=== PATIENT | female | born 1975 | race American Indian/Alaskan Native ===

== ENCOUNTER 2016-11-08 06:22 | Day surgery (SDC) | payer MEDICARE, MEDICAID ==
[2016-11-08] MEDS ORDERED: Sodium Chloride 0.9% 10 ML Syringe FLUSH PRN (06:42)
[2016-11-08] MEDS ORDERED: Ibuprofen 800 MG Tab PO PRN (06:44)
[2016-11-08] MEDS ORDERED: Ketorolac 30 MG/ML SDV IVPUSH PRN (06:44)
[2016-11-08] MEDS ORDERED: Lactated Ringers 1,000 ML IV SCH (06:45)
[2016-11-08] MEDS ORDERED: Silver Nitrate Applicator Each ONE (07:16)
[2016-11-08] MEDS ORDERED: Ferric Subsulfate Topical Soln 8 GM (8 ML) Bottle ONE (07:16)
[2016-11-08] MEDS ORDERED: Propofol 200 MG/20 ML SDV ONE (07:36)
[2016-11-08] MEDS ORDERED: fentaNYL 100 MCG/2 ML SDV ONE (07:36)
[2016-11-08] MEDS ORDERED: Succinylcholine 200 MG/10 ML MDV ONE (07:36)
[2016-11-08] MEDS ORDERED: Midazolam 1 MG/ML 2 ML SDV ONE (07:36)
[2016-11-08] MEDS ORDERED: Ondansetron 4 MG/2 ML SDV ONE (07:36)
[2016-11-08] MEDS ORDERED: Lidocaine 2% 20 ML MDV ONE (07:37)
[2016-11-08] MEDS ORDERED: ceFAZolin 2 GM in Premix Bag 1 BAG IV ONE (09:16)
[2016-11-08] MEDS ORDERED: Dextrose 5% in Water 1,000 ML IV SCH (09:45)
[2016-11-08 09:58] VITALS: BP 139/120
--- NOTE | 2016-11-08 13:02 | OR ---
DATE: 11/08/2016 PREOPERATIVE DIAGNOSES: 1. Abdominal bleeding. 2. Developmentally disabled. POSTOPERATIVE DIAGNOSES: 1. Abdominal bleeding. 2. Developmentally disabled. 3. Simple right ovarian cyst and irregular endometrial cavity. PROCEDURES: Exam under anesthesia, Pap smear, endometrial biopsy, dilation and curettage, and ultrasound transvaginal and transabdominal under anesthesia. ESTIMATED BLOOD LOSS: 5 mL. FLUIDS: Crystalloid/LR. DRAINS: None. PATHOLOGY: Endometrial curettings sent. Pap smear sent. ANESTHESIA: General. FINDINGS: Irregular endometrial cavity with right ovarian cyst, unable to see left ovary on ultrasound. PROCEDURE IN DETAIL: The patient was taken back to the operating room. She was placed supine on the operating table after IV access was obtained. General anesthesia was accomplished. The patient was placed in the dorsal lithotomy position. Pap smear was then accomplished. Then, a transabdominal ultrasound was accomplished. The patient was then prepped and draped in usual sterile fashion in the dorsal lithotomy position. Anterior lip of the cervix was grasped with a single-tooth tenaculum. Endometrial biopsy was accomplished. Then, the cervix was dilated up to a #8 Hegar dilator, and a D and C was then accomplished. All tissue was sent to Pathology. The instruments were removed from the vagina. Bimanual examination revealed moderate-size uterus. The cervix, vagina, external genitalia, all appeared normal. Extremities: No edema, erythema, or tenderness noted. Abdomen: Soft, nontender. Bowel sounds good. No rigidity, rebound tenderness, or peritoneal signs noted. Breasts: No erythema, lesions, dimpling, retractions, or discharge noted. No masses or lesions noted. Axilla: No adenopathy noted. Lungs: Clear to auscultation. No wheezing, rhonchi, or rales noted. Cardiovascular: Regular rate and rhythm without murmurs. Neck: No masses, fullness, or lesions noted. The patient tolerated the procedure quite well. All sponges, needle, and instrument counts were correct by the nurse in attendance x2. The patient was taken to PACU awake and in stable condition. The patient did receive 2 g of Ancef IV. MODL /[id number]
[2016-11-08] MEDS ORDERED: Ondansetron 4 MG/2 ML SDV IV ONE (15:27)
[2016-11-08] MEDS ORDERED: Midazolam 1 MG/ML 2 ML SDV IV ONE (15:27)
[2016-11-08] MEDS ORDERED: Propofol 200 MG/20 ML SDV IV ONE (15:27)
[2016-11-08] MEDS ORDERED: Lidocaine 2% 20 ML MDV INJECT ONE (15:27)
== END 2016-11-08 10:50 | disposition home or self-care (01) ==
LOC: DL.SDS 06:22
PROVIDERS: ATTEND Obstetrics & Gynecology
DX: N95.0 Postmenopausal bleeding (principal); N83.201 Unspecified ovarian cyst, right side; E78.5 Hyperlipidemia, unspecified; G40.909 Epilepsy, unspecified, not intractable, without status epilepticus; E03.9 Hypothyroidism, unspecified; F89 Unspecified disorder of psychological development; Z88.4 Allergy status to anesthetic agent; Z79.899 Other long term (current) drug therapy
CPT/HCPCS: 36415; 58120; 76830; 76857; 81025; 82962; 85027; J0690; J2250; J2405; J2704; J7060; J7120; 00940; 88305

== ENCOUNTER 2017-12-07 19:20 | Emergency (ER) | payer MEDICARE, MEDICAID ==
--- NOTE | 2017-12-07 21:29 | EDM.PDOC ---
ED HPI GENERAL MEDICAL PROBLEM - General Chief Complaint: Upper Extremity Injury/Pain Stated Complaint: HAND PAIN [id number] Time Seen by Provider: 12/07/17 20:50 Source of Information: Reports: Other ([facility] staff) History Limitations: Reports: No Limitations - History of Present Illness INITIAL COMMENTS - FREE TEXT/NARRATIVE: ED with [facility] staff, fell forward Friday, Landing outstretched hands. Has not been using left wrist since. Staff report hx frequent fall. Patient nonverbal. 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 Left Hand Pain Score (Numeric/FACES): 4 - Related Data Allergies Allergy/AdvReac Type Severity Reaction Status Date / Time ketamine Allergy Cannot Verified 12/07/17 19:37 Remember Home Meds: Home Meds Calcium Carb & Citrate/Vit D3 [Calcium + Vitamin D3 Caplet] 1 each PO BID [History] Lactulose [Chronulac] 2 tbsp PO BEDTIME 07/31/13 [History] Levothyroxine Sodium [Synthroid] 50 mcg PO DAILY 07/31/13 [History] Propranolol [Inderal] 10 mg PO TID 07/31/13 [History] Valproic Acid (As Sodium Salt) [Valproic Acid] 500 mg PO TID 07/31/13 [History] lamoTRIgine [LaMICtal] 75 mg PO BID 07/31/13 [History] medroxyPROGESTERone Acetate [Depo-Provera] 150 mg IM .[id number] 07/31/13 [History] atorvaSTATin [Lipitor] 1 tab PO BEDTIME 09/21/15 [History] Benzonatate 200 mg PO TID PRN 10/03/16 [History] Carbamide Peroxide [Debrox 6.5% Otic Soln] 1 drop EARBOTH ASDIRECTED 10/03/16 [ History] Loratadine 1 tab PO DAILY PRN 10/03/16 [History] metFORMIN HCl [Metformin HCl ER] 1 tab PO BID 10/03/16 [History] Past Medical History HEENT History: Reports: None Cardiovascular History: Reports: None Respiratory History: Reports: None Gastrointestinal History: Reports: None Genitourinary History: Reports: None STRIPPER MACHINE OPERATOR 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: Reports: None, Other (See Below) 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 Musculoskeletal History: Reports: None Neurological History: Reports: Seizure Psychiatric History: Reports: Other (See Below) Other Psychiatric History: intellectually disability Endocrine/Metabolic History: Reports: Diabetes, Type II, Hypothyroidism Hematologic History: Reports: None Immunologic History: Reports: None Oncologic (Cancer) History: Reports: None Dermatologic History: Reports: None - Infectious Disease History Infectious Disease History: Reports: None - Past Surgical History Head Surgeries/Procedures: Reports: None HEENT Surgical History: Reports: None Social & Family History - Family History Family Medical History: Noncontributory - Tobacco Use Smoking Status *Q: Never Smoker - Caffeine Use Caffeine Use: Reports: None - Recreational Drug Use Recreational Drug Use: No Review of Systems - Review of Systems Review Of Systems: ROS reveals no pertinent complaints other than HPI. ED EXAM, GENERAL - Physical Exam Exam: See Below Exam Limited By: No Limitations General Appearance: Alert, No Apparent Distress, Anxious (Non verbal) Ears: Normal External Exam Nose: Normal Inspection Throat/Mouth: Normal Inspection Head: Atraumatic, Normocephalic Neck: Full Range of Motion Respiratory/Chest: No Respiratory Distress, Lungs Clear Cardiovascular: Normal Peripheral Pulses, Regular Rate, Rhythm Extremities: Other (Light gree bruising left inner wrist. No deformity right wrist, no bruising, No limiting elbow or shoulder, tender and withdraws with palpation of inner wrist. ) Neurological: Alert. No: Normal Cognition Psychiatric: Anxious Skin Exam: Warm, Dry, Intact, Ecchymosis ( right wrist, ). No: Wound/Incision Course - Vital Signs Last Recorded V/S: Last Vital Signs Temp Pulse Resp 18 12/07/17 19:28 BP Pulse Ox - Radiology Interpretation Free Text/Narrative:: xray left wrist negative. Departure - Departure Time of Disposition: 21:22 Disposition: Home, Self-Care 01 Condition: Good Clinical Impression: Wrist pain, left - Discharge Information Instructions: Wrist Pain, Adult, [id number] Forms: ED Department Discharge Additional Instructions: Splint to left wrist off for showers clinic follow up for re xray alternate tylenol and ibuprofen for discomfort
== END 2017-12-07 21:32 | disposition home or self-care (01) ==
LOC: DL.ED 19:20
DX: S60.212A Contusion of left wrist, initial encounter (principal); S60.211A Contusion of right wrist, initial encounter; E03.9 Hypothyroidism, unspecified; Z88.8 Allergy status to other drugs, medicaments and biological substances; Z79.899 Other long term (current) drug therapy; W18.30XA Fall on same level, unspecified, initial encounter
CPT/HCPCS: 73110-LT; 99283

== ENCOUNTER 2019-04-09 15:55 | Emergency (ER) | payer MEDICARE, MEDICAID ==
[2019-04-09 16:11] VITALS: BP 132/90
[2019-04-09] MEDS ORDERED: LORazepam 1 MG Tab PO ONE (16:32)
--- NOTE | 2019-04-09 16:51 | EDM.PDOC ---
ED HPI GENERAL MEDICAL PROBLEM - General Chief Complaint: Head Injury Stated Complaint: FELL AT WORK Time Seen by Provider: 04/09/19 16:20 Source of Information: Reports: Provider History Limitations: Reports: No Limitations - History of Present Illness INITIAL COMMENTS - FREE TEXT/NARRATIVE: This 44 yo female patient was brought to the ED from the [facility] home due to a fall and laceration to her posterior head. The patient's caregivers report that they don't know exactly what happened, but the patient started yelling. The patient required multiple caregivers to keep her calm. The patient has a 2 cm laceration to the right posterior scalp. The caregivers do not believe that the patient had any loss of consciousness during the incident. The patient does not normally allow care givers to get too close to her and does not trust medical providers. Onset: Today Duration: Minutes:, Constant Location: Reports: Head (right posterior scalp) Quality: Reports: Ache, Dull Severity: Moderate Improves with: Reports: None Worsens with: Reports: None Context: Reports: Other (ground level fall) Associated Symptoms: Reports: No Other Symptoms - Related Data Allergies Allergy/AdvReac Type Severity Reaction Status Date / Time ketamine Allergy Cannot Verified 04/09/19 16:01 Remember Home Meds: Home Meds Calcium Carb & Citrate/Vit D3 [Calcium + Vitamin D3 Caplet] 1 each PO BID [History] Lactulose [Chronulac] 2 tbsp PO BEDTIME 07/31/13 [History] Levothyroxine Sodium [Synthroid] 50 mcg PO DAILY 07/31/13 [History] Propranolol [Inderal] 10 mg PO TID 07/31/13 [History] Valproic Acid (As Sodium Salt) [Valproic Acid] 500 mg PO TID 07/31/13 [History] lamoTRIgine [LaMICtal] 75 mg PO BID 07/31/13 [History] medroxyPROGESTERone Acetate [Depo-Provera] 150 mg IM .[id number] 07/31/13 [History] atorvaSTATin [Lipitor] 1 tab PO BEDTIME 09/21/15 [History] Benzonatate 200 mg PO TID PRN 10/03/16 [History] Carbamide Peroxide [Debrox 6.5% Otic Soln] 1 drop EARBOTH ASDIRECTED 10/03/16 [ History] Loratadine 1 tab PO DAILY PRN 10/03/16 [History] metFORMIN HCl [Metformin ER Osmotic] 1 tab PO BID 10/03/16 [History] Past Medical History HEENT History: Reports: None Cardiovascular History: Reports: None Respiratory History: Reports: None Gastrointestinal History: Reports: None Genitourinary History: Reports: None ACID MIXER History: Reports: None, Other (See Below) 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 ACID MIXER History: IRREGLAR PERIODS Musculoskeletal History: Reports: None Neurological History: Reports: Seizure Psychiatric History: Reports: Other (See Below) Other Psychiatric History: intellectually disability Endocrine/Metabolic History: Reports: Diabetes, Type II, Hypothyroidism Hematologic History: Reports: None Immunologic History: Reports: None Oncologic (Cancer) History: Reports: None Dermatologic History: Reports: None - Infectious Disease History Infectious Disease History: Reports: None - Past Surgical History Head Surgeries/Procedures: Reports: None HEENT Surgical History: Reports: None Social & Family History - Family History Family Medical History: Noncontributory - Tobacco Use Smoking Status *Q: Never Smoker - Caffeine Use Caffeine Use: Reports: None - Recreational Drug Use Recreational Drug Use: No ED ROS GENERAL - Review of Systems Review Of Systems: Comprehensive ROS is negative, except as noted in HPI. ED EXAM, HEAD INJURY - Physical Exam Exam: See Below Exam Limited By: No Limitations General Appearance: Alert, WD/WN Head: Scalp Lacerations, Scalp Tenderness Nexus Criteria: No: Posterior, Midline Cervical Tenderness, Evidence of Intoxication, Altered Level of Consciousness, Focal Neurological Deficit, Painful Distraction Injuries Eyes: Bilateral Eye: EOMI, Normal Inspection, PERRL Ears: Normal External Exam, Normal Canal, Hearing Grossly Normal, Normal TMs Nose: Normal Inspection, Normal Mucousa, No Blood Throat/Mouth: Normal Inspection, Normal Lips, Normal Teeth, Normal Gums, Normal Oropharynx, Normal Voice, No Airway Compromise Neck: Non-Tender, Full Range of Motion, Normal Alignment, Normal Inspection Respiratory: No Respiratory Distress, Lungs Clear, Normal Breath Sounds, No Accessory Muscle Use, Chest Non-Tender Cardiovascular: Normal Peripheral Pulses, Regular Rate, Rhythm, No Edema, No Gallop, No JVD, No Murmur, No Rub GI/Abdominal Exam: Normal Bowel Sounds, Soft, Non-Tender, No Organomegaly, No Distention, No Abnormal Bruit, No Mass (Female) Exam: Deferred Rectal (Female) Exam: Deferred Back Exam: Full Range of Motion, Normal Inspection, NT Extremities: Normal Inspection, Normal Range of Motion, Non-Tender, No Pedal Edema, Normal Capillary Refill Neurologic: wire spring relay adjuster II-XII nml As Tested, No Motor/Sensory Deficits, Alert, Normal Mood/Affect, Oriented x 3 Skin: Other (small laceration to right posterior scalp) - [place] Coma Score Best Eye Response (Antwon): (4) Open Spontaneously Best Verbal Response (Antwon): (5) Oriented Best Motor Response (Antwon): (6) Obeys Commands Antwon Total: 15 ED LACERATION/WOUND & TAMIKA PROC - Laceration/Wound Repair Right Posterior Head Lac/wound length in cm: 0.5 Appearance: Subcutaneous Distal NVT: Other Skin Prep: Saline Exploration/Debridement/Repair: Wound Explored, In a Bloodless Field, No Foreign Material Found Closed with: [place] # of Sutures: 1 Drain Placement: No Sterile Dressing Applied: None Tetanus Status Addressed: Yes Course - Vital Signs Last Recorded V/S: Last Vital Signs Temp 36.9 C 04/09/19 16:10 Pulse Resp 16 04/09/19 16:10 BP 132/90 04/09/19 16:10 Pulse Ox - Orders/Labs/Meds Meds: Medications Discontinued Medications Generic Name Dose Route Start Last Admin Trade Name Freq PRN Reason Stop Dose Admin Lorazepam 1 mg 04/09/19 16:32 04/09/19 16:36 Ativan PO 04/09/19 16:33 1 mg ONETIME ONE Administration Departure - Departure Time of Disposition: 16:54 Disposition: Home, Self-Care 01 Condition: Fair Clinical Impression: Scalp laceration Qualifiers: Encounter type: initial encounter Qualified Code(s): S01.01XA - Laceration without foreign body of scalp, initial encounter - Discharge Information *PRESCRIPTION DRUG MONITORING PROGRAM REVIEWED*: Not Applicable *COPY OF PRESCRIPTION DRUG MONITORING REPORT IN PATIENT PACHECO: Not Applicable Instructions: Stitches, Anny, or Adhesive Wound Closure, [id number], Laceration Care, Adult, [id number] Care Plan Goals: The patient and caregivers were advised of the examination results during the visit. The patient's caregivers assisted in calming the patient for treatment and while the staple was placed. There was good approximation of the skin margins. The patient's caregivers were encouraged to continue to monitor the patient for any additional symptoms. The patient should have the staple removed in about 10 days. The patient was given an oral dose of Ativan (1 mg) while in the ED. If the patient has any additional symptoms or concerns, the patient should either return to the emergency department or visit her primary care facility. Sepsis Event Note - Evaluation Sepsis Screening Result: No Definite Risk - Focused Exam Vital Signs: Vital Signs Temp Resp BP 04/09/19 16:10 36.9 C 16 132/90 Date Exam was Performed: 04/09/19 Time Exam was Performed: 16:37
== END 2019-04-09 17:15 | disposition home or self-care (01) ==
LOC: DL.ED 15:55
DX: S01.01XA Laceration without foreign body of scalp, initial encounter (principal); E11.9 Type 2 diabetes mellitus without complications; E03.9 Hypothyroidism, unspecified; Z79.84 Long term (current) use of oral hypoglycemic drugs; Z79.890 Hormone replacement therapy; Z88.4 Allergy status to anesthetic agent; W18.30XA Fall on same level, unspecified, initial encounter; Y92.129 Unspecified place in nursing home as the place of occurrence of the external cause; Y99.0 Civilian activity done for income or pay
CPT/HCPCS: 12001; 99283; A9270

== ENCOUNTER 2019-09-02 12:37 | Emergency (ER) | payer MEDICARE, MEDICAID ==
--- NOTE | 2019-09-02 12:59 | EDM.PDOC ---
ED HPI GENERAL MEDICAL PROBLEM - General Chief Complaint: Laceration Stated Complaint: LACERATION TO HEAD Time Seen by Provider: 09/02/19 12:50 Source of Information: Reports: RN, RN Notes Reviewed, Other (Caregiver) History Limitations: Reports: Other (Severe M.R.) - History of Present Illness INITIAL COMMENTS - FREE TEXT/NARRATIVE: Pt presented from intermediate by caregiver with c/o laceration to the back of her head. Pt is non-verbal and cannot provide any history. No one witness how the pt was cut. Tetanus is up to date per caregiver. No other injuries per caregiver. Onset: Today, Unknown/Unsure Duration: Constant Location: Reports: Head Severity: Mild Improves with: Reports: None Worsens with: Reports: None Associated Symptoms: Reports: No Other Symptoms - Related Data Allergies Allergy/AdvReac Type Severity Reaction Status Date / Time ketamine Allergy Cannot Verified 09/02/19 12:58 Remember Home Meds: Home Meds Calcium Carb & Citrate/Vit D3 [Calcium + Vitamin D3 Caplet] 1 each PO BID [History] Lactulose [Chronulac] 2 tbsp PO BEDTIME 07/31/13 [History] Levothyroxine Sodium [Synthroid] 50 mcg PO DAILY 07/31/13 [History] Propranolol [Inderal] 10 mg PO TID 07/31/13 [History] Valproic Acid (As Sodium Salt) [Valproic Acid] 500 mg PO TID 07/31/13 [History] lamoTRIgine [LaMICtal] 75 mg PO BID 07/31/13 [History] medroxyPROGESTERone Acetate [Depo-Provera] 150 mg IM .[id number] 07/31/13 [History] atorvaSTATin [Lipitor] 1 tab PO BEDTIME 09/21/15 [History] Benzonatate 200 mg PO TID PRN 10/03/16 [History] Carbamide Peroxide [Debrox 6.5% Otic Soln] 1 drop EARBOTH ASDIRECTED 10/03/16 [ History] Loratadine 1 tab PO DAILY PRN 10/03/16 [History] metFORMIN HCl [Metformin ER Osmotic] 1 tab PO BID 10/03/16 [History] Past Medical History HEENT History: Reports: None Cardiovascular History: Reports: None Respiratory History: Reports: None Gastrointestinal History: Reports: None Genitourinary History: Reports: None TRANSLATIONAL SPECIALIST History: Reports: None, Other (See Below) 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 TRANSLATIONAL SPECIALIST History: IRREGLAR PERIODS Musculoskeletal History: Reports: None Neurological History: Reports: Seizure Psychiatric History: Reports: Other (See Below) Other Psychiatric History: intellectually disability Endocrine/Metabolic History: Reports: Diabetes, Type II, Hypothyroidism Hematologic History: Reports: None Immunologic History: Reports: None Oncologic (Cancer) History: Reports: None Dermatologic History: Reports: None - Infectious Disease History Infectious Disease History: Reports: None - Past Surgical History Head Surgeries/Procedures: Reports: None HEENT Surgical History: Reports: None Social & Family History - Family History Family Medical History: Noncontributory - Caffeine Use Caffeine Use: Reports: None - Living Situation & Occupation Living situation: Reports: Other (skilled nursing) ED ROS GENERAL - Review of Systems Review Of Systems: Unable To Obtain Reason Not Obtained: non-verbal pt ED EXAM, SKIN/RASH Exam: See Below Exam Limited By: Other (severe M.R.) General Appearance: Alert, No Apparent Distress Eye Exam: Bilateral Eye: Normal Inspection Ears: Normal External Exam Nose: Normal Inspection Throat/Mouth: No Airway Compromise Head: Normocephalic, Other (4cm linear laceration to depth of subcutaneous tissue at parietal scalp near the apex/pole of the head, no active bleeding, no FB) Neck: Normal Inspection, Full Range of Motion Respiratory/Chest: No Respiratory Distress Neurological: Alert, No Motor/Sensory Deficits Skin: Warm, Dry ED SKIN PROCEDURES - Laceration/Wound Repair Right Upper Posterior Head Appearance: Subcutaneous, Linear, Clean Distal NVT: Neuro & Vascular Intact Anesthetic Type: Other (None) Skin Prep: Chlorhexidine (Hibiciens) Exploration/Debridement/Repair: Wound Explored, In a Bloodless Field, Explored to Base, Minimal Debridement, Minimally Undermined Closed with: [place] Lac/Wound length In cm: 8 Suture Type: Interrupted Drain Placement: No Sterile Dressing Applied: None Tetanus Status Addressed: Yes Complications: No Departure - Departure Time of Disposition: 12:57 Disposition: Home, Self-Care 01 Condition: Good Clinical Impression: Scalp laceration Qualifiers: Encounter type: initial encounter Qualified Code(s): S01.01XA - Laceration without foreign body of scalp, initial encounter - Discharge Information *PRESCRIPTION DRUG MONITORING PROGRAM REVIEWED*: Not Applicable *COPY OF PRESCRIPTION DRUG MONITORING REPORT IN PATIENT PACHECO: Not Applicable Instructions: Sutures, Anny, or Adhesive Wound Closure Forms: ED Department Discharge Additional Instructions: May shampoo hair after 24 hours. Follow up with clinic for staple removal in 7 to 10 days. Sepsis Event Note - Focused Exam Date Exam was Performed: 09/02/19 Time Exam was Performed: 13:01
== END 2019-09-02 13:05 | disposition home or self-care (01) ==
LOC: DL.ED 12:37
DX: S01.01XA Laceration without foreign body of scalp, initial encounter (principal); R56.9 Unspecified convulsions; E11.9 Type 2 diabetes mellitus without complications; E03.9 Hypothyroidism, unspecified; Z79.899 Other long term (current) drug therapy; Z88.4 Allergy status to anesthetic agent; Z79.84 Long term (current) use of oral hypoglycemic drugs; W26.9XXA Contact with unspecified sharp object(s), initial encounter
CPT/HCPCS: 12004; 99282

== ENCOUNTER 2020-02-26 18:11 | Emergency (ER) | payer MEDICARE, MEDICAID ==
[2020-02-26 18:35] VITALS: PULSE 100
--- NOTE | 2020-02-26 19:07 | EDM.PDOC ---
ED HPI GENERAL MEDICAL PROBLEM - General Chief Complaint: Head Injury Stated Complaint: FELL HEAD LACERATION Time Seen by Provider: 02/26/20 19:04 Source of Information: Reports: Other (caretakers) History Limitations: Reports: Other ([facility] home status) - History of Present Illness INITIAL COMMENTS - FREE TEXT/NARRATIVE: calibrator barometers states found pt walking around with bleeding from her head. no N/V and behaving her normal self. - Related Data Allergies Allergy/AdvReac Type Severity Reaction Status Date / Time ketamine Allergy Cannot Verified 09/02/19 12:58 Remember Home Meds: Home Meds Calcium Carb & Citrate/Vit D3 [Calcium + Vitamin D3 Caplet] 1 each PO BID 07/31/13 [History] Lactulose [Chronulac] 2 tbsp PO BEDTIME 07/31/13 [History] Levothyroxine Sodium [Synthroid] 50 mcg PO DAILY 07/31/13 [History] Propranolol [Inderal] 10 mg PO TID 07/31/13 [History] Valproic Acid (As Sodium Salt) [Valproic Acid] 500 mg PO TID 07/31/13 [History] lamoTRIgine [LaMICtal] 75 mg PO BID 07/31/13 [History] medroxyPROGESTERone Acetate [Depo-Provera] 150 mg IM .[id number] 07/31/13 [History] atorvaSTATin [Lipitor] 1 tab PO BEDTIME 09/21/15 [History] Benzonatate 200 mg PO TID PRN 10/03/16 [History] Carbamide Peroxide [Debrox 6.5% Otic Soln] 1 drop EARBOTH ASDIRECTED 10/03/16 [History] Loratadine 1 tab PO DAILY PRN 10/03/16 [History] metFORMIN HCl [Metformin ER Osmotic] 1 tab PO BID 10/03/16 [History] Past Medical History HEENT History: Reports: None Cardiovascular History: Reports: None Respiratory History: Reports: None Gastrointestinal History: Reports: None Genitourinary History: Reports: None PATTERN TECHNICIAN History: Reports: None, Other (See Below) 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 PATTERN TECHNICIAN History: IRREGLAR PERIODS Musculoskeletal History: Reports: None Neurological History: Reports: Seizure Psychiatric History: Reports: Other (See Below) Other Psychiatric History: intellectually disability Endocrine/Metabolic History: Reports: Diabetes, Type II, Hypothyroidism Hematologic History: Reports: None Immunologic History: Reports: None Oncologic (Cancer) History: Reports: None Dermatologic History: Reports: None - Infectious Disease History Infectious Disease History: Reports: None - Past Surgical History Head Surgeries/Procedures: Reports: None HEENT Surgical History: Reports: None Social & Family History - Family History Family Medical History: Noncontributory - Tobacco Use Tobacco Use Status *Q: Never Tobacco User Second Hand Smoke Exposure: No - Caffeine Use Caffeine Use: Reports: None - Recreational Drug Use Recreational Drug Use: No - Living Situation & Occupation Living situation: Reports: Other (correction) ED ROS GENERAL - Review of Systems Review Of Systems: Comprehensive ROS is negative, except as noted in HPI. ED EXAM, HEAD INJURY - Physical Exam Exam: See Below Exam Limited By: Other ([facility] home status) General Appearance: Alert, WD/WN, Anxious, Mild Distress, Other ([facility] home status) Head: Scalp Lacerations. No: Burton's Sign, Raccoon Eyes Nexus Criteria: No: Posterior, Midline Cervical Tenderness, Evidence of Intoxication, Altered Level of Consciousness, Focal Neurological Deficit, Painful Distraction Injuries Ears: Hearing Grossly Normal Throat/Mouth: Normal Voice, No Airway Compromise Neck: Full Range of Motion, Normal Inspection Respiratory: No Respiratory Distress Cardiovascular: Regular Rate, Rhythm GI/Abdominal Exam: Soft, Non-Tender (Female) Exam: Deferred Rectal (Female) Exam: Deferred Neurologic: Alert, Other (upset [facility] home status) Skin: Normal Color, Warm/Dry - Antwon Coma Score Best Eye Response ([place]): (4) Open Spontaneously Best Verbal Response ([place]): (5) Oriented Best Motor Response (Antwon): (6) Obeys Commands Antwon Total: 15 ED LACERATION/WOUND & TAMIKA PROC - Laceration/Wound Repair Right Posterior Head Lac/wound length in cm: 3 (right occiput region) Appearance: Subcutaneous, Linear, Clean Skin Prep: Chlorhexidine (Hibiciens) Exploration/Debridement/Repair: Wound Explored, No Foreign Material Found Closed with: [place] # of Sutures: 3 Sterile Dressing Applied: None Tetanus Status Addressed: Yes Complications: No Course - Vital Signs Last Recorded V/S: Last Vital Signs Temp 36.4 C 02/26/20 18:30 Pulse 100 02/26/20 18:30 Resp 20 02/26/20 18:30 BP Pulse Ox - Orders/Labs/Meds Meds: Medications Discontinued Medications Generic Name Dose Route Start Last Admin Trade Name Jose PRN Reason Stop Dose Admin Lorazepam 1 mg 02/26/20 19:01 02/26/20 19:17 Ativan IM 02/26/20 19:02 1 mg ONETIME ONE Administration Departure - Departure Time of Disposition: 19:41 Disposition: Home, Self-Care 01 Condition: Good Clinical Impression: Occipital scalp laceration Qualifiers: Encounter type: initial encounter Qualified Code(s): S01.01XA - Laceration without foreign body of scalp, initial encounter - Discharge Information Instructions: Sutures, Anny, or Adhesive Wound Closure, [id number] Forms: ED Department Discharge Additional Instructions: 1) keep wound clean and dry 2) staple removal 10 days 3) recheck if there is any change or concern 4) tylenol as needed for discomfort Sepsis Event Note (ED) - Evaluation Sepsis Screening Result: No Definite Risk - Focused Exam Vital Signs: Vital Signs Temp Pulse Resp 02/26/20 18:30 36.4 C 100 20
[2020-02-26] MEDS: LORazepam 2 MG/ML SDV IM ONE ×2 (19:12→19:17)
== END 2020-02-26 19:55 | disposition home or self-care (01) ==
LOC: DL.ED 18:11
DX: S01.01XA Laceration without foreign body of scalp, initial encounter (principal); E11.9 Type 2 diabetes mellitus without complications; E03.9 Hypothyroidism, unspecified; Z88.4 Allergy status to anesthetic agent; Z79.84 Long term (current) use of oral hypoglycemic drugs; Z79.899 Other long term (current) drug therapy; W19.XXXA Unspecified fall, initial encounter; Y92.009 Unspecified place in unspecified non-institutional (private) residence as the place of occurrence of the external cause
CPT/HCPCS: 12002; 96372; 99282; J2060

== ENCOUNTER 2020-11-30 16:46 | Emergency (ER) | payer MEDICARE, MEDICAID ==
--- NOTE | 2020-11-30 17:39 | EDM.PDOC ---
Scribed by Eliane Jose 11/30/20 1751 for Raul Jaffe MD ED HPI GENERAL MEDICAL PROBLEM - General Chief Complaint: Head Injury Stated Complaint: FELL, HIT RIGHT FOREHEAD Time Seen by Provider: 11/30/20 17:19 Source of Information: Reports: RN, RN Notes Reviewed History Limitations: Reports: No Limitations - History of Present Illness INITIAL COMMENTS - FREE TEXT/NARRATIVE: Patient presents today with caregivers. Patient lives in [facility]. Staff states that patient does not cooperate when she is in the hospital. They state that in the past when she is here they do as little as possible and let her go. Patient is unwilling to stand on the scale and will not let staff get vital signs. Staff states that around 1600 patient fell against a paper towel barbosa causing a laceration above her superior right eyebrow, staff states that there was no LOC. Staff state that there has been no change in patient level of alertness. No active bleeding. Tetanus is up to date. Onset: Today Duration: Constant Location: Reports: Other (superior right eyebrow) Quality: Reports: Ache Severity: Moderate Improves with: Reports: None Worsens with: Reports: None Associated Symptoms: Reports: No Other Symptoms - Related Data Allergies Allergy/AdvReac Type Severity Reaction Status Date / Time ketamine Allergy Cannot Verified 09/02/19 12:58 Remember Home Meds: Home Meds Calcium Carb & Citrate/Vit D3 [Calcium + Vitamin D3 Caplet] 1 each PO BID 07/31/13 [History] Lactulose [Chronulac] 2 tbsp PO BEDTIME 07/31/13 [History] Levothyroxine Sodium [Synthroid] 50 mcg PO DAILY 07/31/13 [History] Propranolol [Inderal] 10 mg PO TID 07/31/13 [History] Valproic Acid (As Sodium Salt) [Valproic Acid] 500 mg PO TID 07/31/13 [History] lamoTRIgine [LaMICtal] 75 mg PO BID 07/31/13 [History] medroxyPROGESTERone Acetate [Depo-Provera] 150 mg IM .[id number] 07/31/13 [History] atorvaSTATin [Lipitor] 1 tab PO BEDTIME 09/21/15 [History] Benzonatate 200 mg PO TID PRN 10/03/16 [History] Carbamide Peroxide [Debrox 6.5% Otic Soln] 1 drop EARBOTH ASDIRECTED 10/03/16 [History] Loratadine 1 tab PO DAILY PRN 10/03/16 [History] metFORMIN HCl [Metformin ER Osmotic] 1 tab PO BID 10/03/16 [History] Past Medical History HEENT History: Reports: None Cardiovascular History: Reports: None Respiratory History: Reports: None Gastrointestinal History: Reports: None Genitourinary History: Reports: None REGIONAL TRANSFER LIAISON History: Reports: None, Other (See Below) Other REGIONAL TRANSFER LIAISON History: IRREGLAR PERIODS Musculoskeletal History: Reports: None Neurological History: Reports: Seizure Psychiatric History: Reports: Other (See Below) Other Psychiatric History: intellectually disability Endocrine/Metabolic History: Reports: Diabetes, Type II, Hypothyroidism Hematologic History: Reports: None Immunologic History: Reports: None Oncologic (Cancer) History: Reports: None Dermatologic History: Reports: None - Infectious Disease History Infectious Disease History: Reports: None - Past Surgical History Head Surgeries/Procedures: Reports: None HEENT Surgical History: Reports: None Social & Family History - Family History Family Medical History: No Pertinent Family History - Caffeine Use Caffeine Use: Reports: None - Living Situation & Occupation Living situation: Reports: Other (halfway) ED ROS GENERAL - Review of Systems Review Of Systems: Comprehensive ROS is negative, except as noted in HPI. ED EXAM, HEAD INJURY - Physical Exam Exam: See Below Exam Limited By: No Limitations General Appearance: Alert, WD/WN, No Apparent Distress Head: Normocephalic, Facial Lacerations (1.5cm linear just superior to right lateral eyebrow) Eyes: Bilateral Eye: EOMI, Normal Inspection, PERRL Ears: Normal External Exam Nose: Normal Inspection, No Blood Throat/Mouth: No Airway Compromise Neck: Normal Inspection Respiratory: No Respiratory Distress Neurologic: Alert Course - Re-Assessments/Exams Free Text/Narrative Re-Assessment/Exam: 11/30/20 17:37 Rt eyebrow laceration: no procedural wound care by physician. Wound cleansed and closed with steri-strip by RN. Departure - Departure Time of Disposition: 17:38 Disposition: Home, Self-Care 01 Condition: Good Clinical Impression: Laceration of right eyebrow without complication Qualifiers: Encounter type: initial encounter Qualified Code(s): S01.111A - Laceration without foreign body of right eyelid and periocular area, initial encounter - Discharge Information *PRESCRIPTION DRUG MONITORING PROGRAM REVIEWED*: Not Applicable *COPY OF PRESCRIPTION DRUG MONITORING REPORT IN PATIENT PACHECO: Not Applicable Instructions: Sterile Tape Wound Care Forms: ED Department Discharge Additional Instructions: Follow up in clinic if any further problems. I have read and agree with the documentation that has been completed regarding this visit. By signing this record, I attest that the documentation was co mpleted in my physical presence and is an accurate record of the encounter.
== END 2020-11-30 17:43 | disposition home or self-care (01) ==
LOC: DL.ED 16:46
DX: S01.111A Laceration without foreign body of right eyelid and periocular area, initial encounter (principal); E03.9 Hypothyroidism, unspecified; E11.9 Type 2 diabetes mellitus without complications; Z79.899 Other long term (current) drug therapy; Z79.84 Long term (current) use of oral hypoglycemic drugs; Z88.4 Allergy status to anesthetic agent; W18.39XA Other fall on same level, initial encounter
CPT/HCPCS: 99282

== ENCOUNTER 2021-07-10 20:00 | Emergency (ER) | payer MEDICARE, MEDICAID ==
[2021-07-10 20:04] VITALS: BP 115/65; PULSE 82
== END 2021-07-10 20:19 ==
LOC: DL.ED 20:00
DX: S01.01XA Laceration without foreign body of scalp, initial encounter (principal); E11.9 Type 2 diabetes mellitus without complications; E03.9 Hypothyroidism, unspecified; Z88.4 Allergy status to anesthetic agent; Z79.899 Other long term (current) drug therapy; Z79.84 Long term (current) use of oral hypoglycemic drugs; W18.09XA Striking against other object with subsequent fall, initial encounter
CPT/HCPCS: 12001; 99283; 99283-25